=== PATIENT | male | born 1965 | race Caucasian/White ===

== ENCOUNTER 2016-12-18 06:25 | Day surgery (SDC) | payer BC, OTHER ==
[2016-12-16 14:17] VITALS: BP 130/86
[~2016-12-18] VITALS: Ht 177.8 cm; Wt 127.2 kg
[~2016-12-18 06:25] MED LIST: None per pt
[2016-12-18] MEDS ORDERED: BUPIVACAINE/PF-EPI 0.25% 1:200K ONE (06:31)
[2016-12-18] MEDS ORDERED: MIDAZOLAM 1 MG/ML, 2ML ONE (07:15)
[2016-12-18] MEDS ORDERED: FENTANYL PF 250 MCG/5ML ONE (07:15)
[2016-12-18] MEDS ORDERED: LACTATED RINGERS 1,000 ML IV SCH (07:19)
[2016-12-18] MEDS ORDERED: LIDOCAINE 1%, 2ML SQ PRN (07:30)
[2016-12-18] MEDS ORDERED: BUPIVACAINE/PF 0.5% ONE (07:38)
[2016-12-18] MEDS ORDERED: NEOSTIGMINE 1 MG/ML, 10ML ONE (08:06)
[2016-12-18] MEDS ORDERED: GLYCOPYRROLATE 0.2MG/1ML ONE (08:06)
[2016-12-18] MEDS ORDERED: DEXAMETHASONE 4 MG/ML, 1ML ONE (08:06)
[2016-12-18] MEDS ORDERED: ROCURONIUM 10 MG/ML ONE (08:06)
[2016-12-18] MEDS ORDERED: PROPOFOL 10 MG/ML, 20ML ONE (08:06)
[2016-12-18] MEDS ORDERED: CEFAZOLIN 1,000 MG ONE (08:06)
[2016-12-18] MEDS ORDERED: ONDANSETRON 2MG/ML, 2ML ONE (08:06)
[2016-12-18] MEDS ORDERED: PHENYLEPHRINE 10 MG/ML ONE (08:06)
[2016-12-18] MEDS ORDERED: SUCCINYLCHOLINE 20 MG/ML, 10ML ONE (08:06)
[2016-12-18] MEDS ORDERED: hydrALAzine 20 MG/ML, 1ML IV PRN (09:00)
[2016-12-18] MEDS ORDERED: LABETALOL 5MG/ML, 20ML IV PRN (09:00)
[2016-12-18] MEDS ORDERED: PROMETHAZINE 25 MG/ML, 1ML IV PRN (09:00)
[2016-12-18] MEDS ORDERED: MEPERIDINE/PF 25MG/0.5ML IVPush PRN (09:00)
[2016-12-18] MEDS ORDERED: HYDROmorphone 1 MG/ML, 1ML IV PRN (09:00)
[2016-12-18] MEDS ORDERED: HYDROcodone/APAP 7.5-325MG/15ML UDC PO PRN (09:00)
[2016-12-18] MEDS ORDERED: MIDAZOLAM 1 MG/ML, 2ML IV PRN (09:00)
[2016-12-18] MEDS ORDERED: ONDANSETRON 2MG/ML, 2ML IVPush PRN (09:00)
[2016-12-18] MEDS ORDERED: FENTANYL PF 100 MCG/2ML IV PRN (09:00)
[2016-12-18] MEDS ORDERED: OXYcodone 5 MG/5 ML ORAL.SOL UDC PO PRN (09:00)
[2016-12-18] MEDS ORDERED: EPHEDRINE 50 MG/ML, 1ML IVPush PRN (09:00)
[2016-12-18] MEDS ORDERED: ACETAMINOPHEN 325 MG TABLET PO PRN (09:00)
[2016-12-18] MEDS ORDERED: ACETAMINOPHEN 650 MG/20.3 ML UDC ONE (09:43)
[2016-12-18] MEDS ORDERED: OXYcodone 5 MG/5 ML ORAL.SOL UDC ONE (09:43)
== END 2016-12-18 14:40 ==
LOC: OUT 06:25
PROVIDERS: ATTEND Orthopaedic Surgery
DX: M75.111 Incomplete rotator cuff tear or rupture of right shoulder, not specified as traumatic (principal); S43.431A Superior glenoid labrum lesion of right shoulder, initial encounter; M75.41 Impingement syndrome of right shoulder; M94.211 Chondromalacia, right shoulder; X58.XXXA Exposure to other specified factors, initial encounter; Y93.9 Activity, unspecified; Y92.9 Unspecified place or not applicable; Y99.9 Unspecified external cause status
CPT/HCPCS: 29823; 29826; 29827; 82962; C1713; J0330; J0690; J1100; J2250; J2370; J2405; J2704; J2710; J3010; J3490; J7120